=== PATIENT | male | born 1940 | race Caucasian/White ===

== ENCOUNTER 2019-12-09 16:32 | Observation (INO) ==
[2019-12-09] MEDS ORDERED: SODIUM CHLORIDE 0.9% 1,000 ML IV STA (17:16)
[2019-12-09 17:36] LABS: Basophils % 0.2 % (0.0-0.8); Eosinophils % 0.5 % (0.00-10.9); Hematocrit 42.5 VOL% (42.0-52.0); Hemoglobin 14.3 GM/DL (14.0-18.0); Immature Granulocytes % 0.6 %; Immature Granulocytes Absolute 0.05 #; Lymphocytes # 1.5 10*3/uL (1.4-4.0); Lymphocytes % 17.3 % (21.2-54.2); Mean Corpuscular HGB Conc 33.6 GM/DL (32-36); Mean Corpuscular Volume 101.4 FL (87-102); Mean Platelet Volume 9.2 FL (9.6-12.0); Neutrophils % 72.4 % (38.7-73.9); Platelet Count 196 T/CUMM (130-400); Red Blood Count 4.19 MC/CUMM (3.8-5.5); Red Cell Distribution Width 12.5 % (9.3-17.3); White Blood Count 8.6 T/CUMM (4-12)
[2019-12-09 17:52] LABS: Apearance,Urine CLEAR (Clear); Bilirubin,Urine Negative (Negative); Blood, Urine Negative (Negative); Glucose,Urine (UA) Negative (Negative); Hyaline Casts,Urine 18 /LPF (0-3); Ketones,Urine Negative (Negative); Mucus,Urine Occasional /LPF (Occasional); Nitrite,Urine Negative (Negative); Protein,Urine 30 MG/DL; RBC,Urine 3 /HPF (0-4); Squamous Epithelial Cell,Urine Occasional /HPF (0-10); Urine Color Amber (Yellow); Urine Specific Gravity 1.023 (1.001-1.035); WBC,Urine 2 /HPF (0-6)
[2019-12-09 18:05] LABS: Bilirubin,Total 0.6 MG/DL (0.2-1.0); Calcium 9.2 MG/DL (8.5-10.1); Osmolality,Calculated 270.2 MOS/KG (273-304); Total Protein 7.6 G/DL (6.4-8.3)
[2019-12-09] MEDS ORDERED: ONDANSETRON 4 MG/2 ML VIAL IV PRN (21:29)
[2019-12-09] MEDS ORDERED: ACETAMINOPHEN 325 MG TABLET PO PRN (21:29)
[2019-12-09] MEDS ORDERED: SODIUM PHOSPHATE ENEMA 133 ML BOTTLE RECTAL STA (21:34)
[2019-12-09] MEDS ORDERED: LACTULOSE 20 GM/30 ML UDCUP PO STA (21:34)
[2019-12-09] MEDS: DOCUSATE SODIUM 100 MG CAPSULE PO SCH (22:29)
[2019-12-10] MEDS ORDERED: PANTOPRAZOLE 40 MG TABLET PO SCH (09:00)
[2019-12-10] MEDS: DOCUSATE SODIUM 100 MG CAPSULE PO SCH (09:11)
[2019-12-10] MEDS ORDERED: BISACODYL 5 MG TABLET PO ONE (10:00)
[2019-12-10 15:35] VITALS: BP 126/83
== END 2019-12-10 18:22 | disposition home or self-care (01) ==
LOC: N.ED 16:32 → N.2E 16:32
PROVIDERS: ADMIT Family Medicine; ATTEND Family Medicine

== ENCOUNTER 2020-08-01 12:28 | Inpatient (IN) ==
[2020-08-01] MEDS ORDERED: SODIUM CHLORIDE 0.9% 1,000 ML IV STA ×2 (12:47→14:17)
[2020-08-01 13:25] LABS: Basophils % 0.6 % (0.0-0.8); Eosinophils # 0.1 10*3/uL (0.0-0.87); Eosinophils % 1.8 % (0.00-10.9); Hematocrit 41.5 VOL% (42.0-52.0); Immature Granulocytes % 1.4 %; Lymphocytes # 1.2 10*3/uL (1.4-4.0); Lymphocytes % 16.2 % (21.2-54.2); Mean Corpuscular HGB Conc 33.7 GM/DL (32-36); Mean Corpuscular Volume 96.3 FL (87-102); Mean Platelet Volume 9.2 FL (9.6-12.0); Monocytes % 10.3 % (1.7-12.7); Neutrophils % 69.7 % (38.7-73.9); Platelet Count 213 T/CUMM (130-400); Red Blood Count 4.31 MC/CUMM (3.8-5.5); Red Cell Distribution Width 12.3 % (9.3-17.3); White Blood Count 7.2 T/CUMM (4-12)
[2020-08-01 13:39] LABS: Bilirubin,Urine Negative (Negative); Blood, Urine Negative (Negative); Glucose,Urine (UA) Negative (Negative); Hyaline Casts,Urine 4 /LPF (0-3); Ketones,Urine Negative (Negative); Mucus,Urine Occasional /LPF (Occasional); Nitrite,Urine Negative (Negative); Protein,Urine 30 MG/DL; RBC,Urine 1 /HPF (0-4); Urine Appearance CLEAR (Clear); Urine Color Yellow (Yellow); Urine Specific Gravity 1.021 (1.001-1.035); WBC,Urine 2 /HPF (0-6)
[2020-08-01 13:40] LABS: Alanine Aminotransferase 28 U/L (16-61); Albumin 3.2 G/DL (3.4-5.0); Alkaline Phosphatase 71 U/L (45-117); Aspartate Amino Transferase 29 U/L (0-37); Blood Urea Nitrogen 9 MG/DL (7-18); Calcium 8.8 MG/DL (8.5-10.1); Estimated Glom Filtration Rate 63 ML/MIN; Glucose 133 MG/DL (74-106); Osmolality,Calculated 266.4 MOS/KG (273-304); Total Protein 7.8 G/DL (6.4-8.3)
[2020-08-01 14:41] LABS: Sedimentation Rate-Westergren 63 MM/HR (0-20)
[2020-08-01] MEDS: SODIUM CHLORIDE 0.45% 1,000 ML IV SCH (16:49)
[2020-08-01] MEDS: PIPERACILLIN/TAZOBACTAM 3,375 MG in SODIUM CHLORIDE 0.9% 100 ML IV SCH (16:49)
[2020-08-01] MEDS ORDERED: IBUPROFEN 400 MG TABLET PO PRN (20:26)
[2020-08-01] MEDS: ACETAMINOPHEN 325 MG TABLET PO PRN (20:38)
[2020-08-01] MEDS: ENOXAPARIN 40 MG/0.4 ML SYRINGE SUBCUT SCH (21:25)
[2020-08-01] MEDS: DOXYCYCLINE HYCLATE 100 MG CAPSULE PO SCH (21:25)
[2020-08-02] MEDS: SODIUM CHLORIDE 0.45% 1,000 ML IV SCH ×3 (01:43→16:37)
[2020-08-02] MEDS: PIPERACILLIN/TAZOBACTAM 3,375 MG in SODIUM CHLORIDE 0.9% 100 ML IV SCH ×3 (01:43→18:15)
[2020-08-02] MEDS: PANTOPRAZOLE 40 MG TABLET PO SCH (08:35)
[2020-08-02] MEDS: DOXYCYCLINE HYCLATE 100 MG CAPSULE PO SCH ×2 (08:35→20:49)
[2020-08-02] MEDS: MORPHINE 4 MG/1 ML VIAL IV PRN (08:54)
[2020-08-02] MEDS: ZALEPLON 5 MG CAPSULE PO SCH (20:49)
[2020-08-02] MEDS: ACETAMINOPHEN 325 MG TABLET PO PRN (20:49)
[2020-08-02] MEDS: PRAMIPEXOLE 0.25 MG TABLET PO SCH (20:49)
[2020-08-02] MEDS: GABAPENTIN 300 MG CAPSULE PO SCH (20:49)
[2020-08-02] MEDS: ENOXAPARIN 40 MG/0.4 ML SYRINGE SUBCUT SCH (20:50)
[2020-08-03] MEDS: PIPERACILLIN/TAZOBACTAM 3,375 MG in SODIUM CHLORIDE 0.9% 100 ML IV SCH ×3 (01:03→17:29)
[2020-08-03] MEDS: SODIUM CHLORIDE 0.45% 1,000 ML IV SCH ×2 (06:30→23:25)
[2020-08-03] MEDS ORDERED: ALBUTEROL 2.5 MG/3 ML NEB RESP TX PRN (07:34)
[2020-08-03] MEDS ORDERED: DEXTROMETHORPHAN ER 6 MG/ML 90 ML/BOTTLE PO PRN (07:34)
[2020-08-03] MEDS: PRAMIPEXOLE 0.25 MG TABLET PO SCH ×2 (12:20→21:10)
[2020-08-03] MEDS: DOXYCYCLINE HYCLATE 100 MG CAPSULE PO SCH ×2 (12:21→21:10)
[2020-08-03] MEDS: GABAPENTIN 300 MG CAPSULE PO SCH ×2 (12:21→21:10)
[2020-08-03] MEDS: PANTOPRAZOLE 40 MG TABLET PO SCH (12:21)
[2020-08-03] MEDS: SERTRALINE 25 MG TABLET PO SCH (12:21)
[2020-08-03] MEDS: ALBUTEROL/IPRATROPIUM 3 ML NEB RESP TX SCH ×3 (16:20→23:19)
[2020-08-03 17:59] LABS: Basophils % 0.5 % (0.0-0.8); Eosinophils % 0.6 % (0.00-10.9); Hematocrit 34.1 VOL% (42.0-52.0); Hemoglobin 11.1 GM/DL (14.0-18.0); Immature Granulocytes % 1.2 %; Immature Granulocytes Absolute 0.08 #; Lymphocytes # 1.2 10*3/uL (1.4-4.0); Lymphocytes % 18.8 % (21.2-54.2); Mean Corpuscular HGB Conc 32.6 GM/DL (32-36); Mean Platelet Volume 8.8 FL (9.6-12.0); Monocytes % 11.5 % (1.7-12.7); Neutrophils % 67.4 % (38.7-73.9); Platelet Count 214 T/CUMM (130-400); Red Blood Count 3.48 MC/CUMM (3.8-5.5); Red Cell Distribution Width 12.3 % (9.3-17.3); White Blood Count 6.4 T/CUMM (4-12)
[2020-08-03] MEDS: ENOXAPARIN 40 MG/0.4 ML SYRINGE SUBCUT SCH (21:10)
[2020-08-03] MEDS: ZALEPLON 5 MG CAPSULE PO SCH (21:10)
[2020-08-04] MEDS: PIPERACILLIN/TAZOBACTAM 3,375 MG in SODIUM CHLORIDE 0.9% 100 ML IV SCH ×3 (00:30→17:06)
[2020-08-04] MEDS: ALBUTEROL/IPRATROPIUM 3 ML NEB RESP TX SCH ×6 (03:45→23:30)
[2020-08-04] MEDS: SODIUM CHLORIDE 0.45% 1,000 ML IV SCH ×5 (04:30→21:39)
[2020-08-04 06:40] LABS: Albumin 2.3 G/DL (3.4-5.0); Bilirubin,Total 1.2 MG/DL (0.2-1.0); Calcium 8.5 MG/DL (8.5-10.1); Osmolality,Calculated 273.8 MOS/KG (273-304); Total Protein 6.2 G/DL (6.4-8.3)
[2020-08-04] MEDS ORDERED: HEPARIN/NACL 0.9% 2 UNITS/ML 500 ML IV ONE (10:02)
[2020-08-04] MEDS ORDERED: PHENYLEPHRINE DRIP 20 MG/250 ML PREMIX IV ONE (10:02)
[2020-08-04] MEDS ORDERED: SUGAMMADEX 200 MG/2 ML VIAL IV ONE (12:01)
[2020-08-04 12:33] LABS: Bilirubin,Urine Negative (Negative); Blood, Urine Negative (Negative); Glucose,Urine (UA) Negative (Negative); Hyaline Casts,Urine 1 /LPF (0-3); Ketones,Urine Negative (Negative); Nitrite,Urine Negative (Negative); Protein,Urine Negative; RBC,Urine 1 /HPF (0-4); Urine Appearance CLEAR (Clear); Urine Color Yellow (Yellow); Urine Specific Gravity 1.013 (1.001-1.035); Urine Urobilinogen < 2.0 EU/DL (0.2-1.0); WBC,Urine <1 /HPF (0-6)
[2020-08-04] MEDS ORDERED: ETOMIDATE 40 MG/20 ML VIAL IV ONE (12:34)
[2020-08-04] MEDS ORDERED: LIDOCAINE 2% 5 ML VIAL ONE (12:34)
[2020-08-04] MEDS ORDERED: fentaNYL 100 MCG/2 ML VIAL ONE (12:34)
[2020-08-04] MEDS ORDERED: SODIUM CHLORIDE 0.9% 1,000 ML IV ONE (12:35)
[2020-08-04] MEDS ORDERED: SEVOFLURANE 1 UNIT/15 MINUTE INH ONE (12:35)
[2020-08-04] MEDS ORDERED: ROCURONIUM 100 MG/10 ML VIAL IV ONE (12:35)
[2020-08-04] MEDS ORDERED: DEXAMETHASONE 4 MG/1 ML VIAL ONE (12:45)
[2020-08-04] MEDS ORDERED: ROPIVACAINE 0.5% 30 ML VIAL ONE (12:46)
[2020-08-04] MEDS ORDERED: LIDOCAINE 50 MG/5 ML SYRINGE ONE (12:46)
[2020-08-04] MEDS: PRAMIPEXOLE 0.25 MG TABLET PO SCH ×2 (13:29→20:39)
[2020-08-04] MEDS: GABAPENTIN 300 MG CAPSULE PO SCH ×2 (13:29→20:39)
[2020-08-04] MEDS: DOXYCYCLINE HYCLATE 100 MG CAPSULE PO SCH ×2 (13:34→20:39)
[2020-08-04] MEDS: SERTRALINE 25 MG TABLET PO SCH (13:34)
[2020-08-04] MEDS: PANTOPRAZOLE 40 MG TABLET PO SCH (13:34)
[2020-08-04] MEDS: ZALEPLON 5 MG CAPSULE PO SCH (20:39)
[2020-08-04] MEDS: ENOXAPARIN 40 MG/0.4 ML SYRINGE SUBCUT SCH (20:40)
[2020-08-04] MEDS: MORPHINE 4 MG/1 ML VIAL IV PRN (23:53)
[2020-08-05] MEDS: SODIUM CHLORIDE 0.45% 1,000 ML IV SCH ×4 (00:33→15:30)
[2020-08-05] MEDS: PIPERACILLIN/TAZOBACTAM 3,375 MG in SODIUM CHLORIDE 0.9% 100 ML IV SCH ×3 (01:16→18:06)
[2020-08-05] MEDS: ALBUTEROL/IPRATROPIUM 3 ML NEB RESP TX SCH ×6 (03:24→23:07)
[2020-08-05] MEDS: MORPHINE 4 MG/1 ML VIAL IV PRN (06:21)
[2020-08-05] MEDS: DOXYCYCLINE HYCLATE 100 MG CAPSULE PO SCH ×2 (08:41→20:23)
[2020-08-05] MEDS: PRAMIPEXOLE 0.25 MG TABLET PO SCH ×2 (08:41→20:22)
[2020-08-05] MEDS: PANTOPRAZOLE 40 MG TABLET PO SCH (08:42)
[2020-08-05] MEDS: GABAPENTIN 300 MG CAPSULE PO SCH ×2 (08:42→20:23)
[2020-08-05] MEDS: SERTRALINE 25 MG TABLET PO SCH (08:42)
[2020-08-05] MEDS: ACETAMINOPHEN 325 MG TABLET PO PRN ×2 (13:06→20:23)
[2020-08-05] MEDS: ENOXAPARIN 40 MG/0.4 ML SYRINGE SUBCUT SCH (20:22)
[2020-08-05] MEDS: ZALEPLON 5 MG CAPSULE PO SCH (21:21)
[2020-08-05] MEDS: ONDANSETRON 4 MG/2 ML VIAL IV PRN (21:21)
[2020-08-06] MEDS: SODIUM CHLORIDE 0.45% 1,000 ML IV SCH ×3 (01:43→18:21)
[2020-08-06] MEDS: PIPERACILLIN/TAZOBACTAM 3,375 MG in SODIUM CHLORIDE 0.9% 100 ML IV SCH ×3 (01:44→18:07)
[2020-08-06] MEDS: ALBUTEROL/IPRATROPIUM 3 ML NEB RESP TX SCH ×5 (03:14→18:41)
[2020-08-06] MEDS: ACETAMINOPHEN 325 MG TABLET PO PRN ×2 (09:11→20:51)
[2020-08-06] MEDS: GABAPENTIN 300 MG CAPSULE PO SCH ×2 (09:12→20:51)
[2020-08-06] MEDS: LEVOFLOXACIN 500 MG TABLET PO SCH (09:12)
[2020-08-06] MEDS: PRAMIPEXOLE 0.25 MG TABLET PO SCH ×2 (09:12→20:51)
[2020-08-06] MEDS: SERTRALINE 25 MG TABLET PO SCH (09:13)
[2020-08-06] MEDS: PANTOPRAZOLE 40 MG TABLET PO SCH (09:13)
[2020-08-06] MEDS: ZALEPLON 5 MG CAPSULE PO SCH (20:51)
[2020-08-06] MEDS: ENOXAPARIN 40 MG/0.4 ML SYRINGE SUBCUT SCH (20:51)
[2020-08-06] MEDS ORDERED: FUROSEMIDE 40 MG/4 ML VIAL IV ONE (22:54)
[2020-08-06] MEDS ORDERED: FUROSEMIDE 40 MG/4 ML VIAL ONE (22:56)
[2020-08-06 23:39] LABS: Bacteria,Urine Occasional /HPF (Few); Bilirubin,Urine Negative (Negative); Blood, Urine Small mg/dL (Negative); Glucose,Urine (UA) Negative (Negative); Ketones,Urine Negative (Negative); Mucus,Urine Occasional /LPF (Occasional); Nitrite,Urine Negative (Negative); Protein,Urine Negative; RBC,Urine 1 /HPF (0-4); Squamous Epithelial Cell,Urine Occasional /HPF (0-10); Urine Appearance CLEAR (Clear); Urine Color Yellow (Yellow); Urine Specific Gravity 1.014 (1.001-1.035); Urine Urobilinogen < 2.0 EU/DL (0.2-1.0)
[2020-08-07] MEDS: SODIUM CHLORIDE 0.45% 1,000 ML IV SCH ×2 (00:12→09:35)
[2020-08-07] MEDS: ALBUTEROL/IPRATROPIUM 3 ML NEB RESP TX SCH ×6 (00:30→20:13)
[2020-08-07] MEDS: PIPERACILLIN/TAZOBACTAM 3,375 MG in SODIUM CHLORIDE 0.9% 100 ML IV SCH ×3 (01:38→18:04)
[2020-08-07 04:23] LABS: Basophils % 0.5 % (0.0-0.8); Eosinophils # 0.1 10*3/uL (0.0-0.87); Eosinophils % 0.8 % (0.00-10.9); Hematocrit 32.5 VOL% (42.0-52.0); Hemoglobin 10.7 GM/DL (14.0-18.0); Immature Granulocytes % 2.1 %; Immature Granulocytes Absolute 0.19 #; Lymphocytes # 1.2 10*3/uL (1.4-4.0); Lymphocytes % 13.9 % (21.2-54.2); Mean Corpuscular HGB Conc 32.9 GM/DL (32-36); Mean Corpuscular Volume 97.3 FL (87-102); Mean Platelet Volume 8.9 FL (9.6-12.0); Monocytes % 10.4 % (1.7-12.7); Neutrophils % 72.3 % (38.7-73.9); Platelet Count 304 T/CUMM (130-400); Red Blood Count 3.34 MC/CUMM (3.8-5.5); Red Cell Distribution Width 12.8 % (9.3-17.3); White Blood Count 8.9 T/CUMM (4-12)
[2020-08-07 04:35] LABS: Calcium 7.9 MG/DL (8.5-10.1); Osmolality,Calculated 277.5 MOS/KG (273-304)
[2020-08-07] MEDS ORDERED: MAGNESIUM SULF RIDER 2 GM in PREMIX 1 EACH IV ONE (07:15)
[2020-08-07] MEDS ORDERED: POTASSIUM CHLORIDE 20 MEQ TABLET PO ONE ×2 (07:16→11:00)
[2020-08-07] MEDS ORDERED: FUROSEMIDE 40 MG/4 ML VIAL IV ONE (08:12)
[2020-08-07] MEDS: PRAMIPEXOLE 0.25 MG TABLET PO SCH ×2 (09:15→20:59)
[2020-08-07] MEDS: SERTRALINE 25 MG TABLET PO SCH (09:16)
[2020-08-07] MEDS: GABAPENTIN 300 MG CAPSULE PO SCH ×2 (09:16→20:59)
[2020-08-07] MEDS: PANTOPRAZOLE 40 MG TABLET PO SCH (09:16)
[2020-08-07] MEDS: LEVOFLOXACIN 500 MG TABLET PO SCH (09:22)
[2020-08-07] MEDS: ZALEPLON 5 MG CAPSULE PO SCH (20:59)
[2020-08-07] MEDS: ENOXAPARIN 40 MG/0.4 ML SYRINGE SUBCUT SCH (20:59)
[2020-08-08] MEDS: ALBUTEROL/IPRATROPIUM 3 ML NEB RESP TX SCH ×6 (00:03→20:06)
[2020-08-08] MEDS: PIPERACILLIN/TAZOBACTAM 3,375 MG in SODIUM CHLORIDE 0.9% 100 ML IV SCH ×3 (01:46→16:30)
[2020-08-08 05:19] LABS: Basophils # 0.1 10*3/uL (0.0-0.2); Basophils % 0.6 % (0.0-0.8); Eosinophils # 0.2 10*3/uL (0.0-0.87); Eosinophils % 1.8 % (0.00-10.9); Hematocrit 30.9 VOL% (42.0-52.0); Hemoglobin 10.5 GM/DL (14.0-18.0); Immature Granulocytes % 3.6 %; Lymphocytes # 1.2 10*3/uL (1.4-4.0); Lymphocytes % 14.5 % (21.2-54.2); Mean Corpuscular Volume 95.1 FL (87-102); Mean Platelet Volume 8.8 FL (9.6-12.0); Monocytes % 10.2 % (1.7-12.7); Neutrophils % 69.3 % (38.7-73.9); Platelet Count 285 T/CUMM (130-400); Red Blood Count 3.25 MC/CUMM (3.8-5.5); Red Cell Distribution Width 12.7 % (9.3-17.3); White Blood Count 8.3 T/CUMM (4-12)
[2020-08-08 05:41] LABS: Calcium 8.1 MG/DL (8.5-10.1); Osmolality,Calculated 276.8 MOS/KG (273-304)
[2020-08-08] MEDS ORDERED: FUROSEMIDE 20 MG TABLET PO SCH (09:00)
[2020-08-08] MEDS: LEVOFLOXACIN 500 MG TABLET PO SCH (09:08)
[2020-08-08] MEDS: PANTOPRAZOLE 40 MG TABLET PO SCH (09:08)
[2020-08-08] MEDS: SERTRALINE 25 MG TABLET PO SCH (09:08)
[2020-08-08] MEDS: GABAPENTIN 300 MG CAPSULE PO SCH ×2 (09:08→21:12)
[2020-08-08] MEDS: PRAMIPEXOLE 0.25 MG TABLET PO SCH ×2 (09:08→21:12)
[2020-08-08] MEDS: FUROSEMIDE 40 MG/4 ML VIAL IV SCH ×2 (13:34→16:31)
[2020-08-08] MEDS: ACETAMINOPHEN 325 MG TABLET PO PRN (21:12)
[2020-08-08] MEDS: ENOXAPARIN 40 MG/0.4 ML SYRINGE SUBCUT SCH (21:12)
[2020-08-09] MEDS: ALBUTEROL/IPRATROPIUM 3 ML NEB RESP TX SCH ×7 (00:41→23:47)
[2020-08-09] MEDS: PIPERACILLIN/TAZOBACTAM 3,375 MG in SODIUM CHLORIDE 0.9% 100 ML IV SCH (02:17)
[2020-08-09] MEDS: ZALEPLON 5 MG CAPSULE PO SCH ×2 (02:17→21:24)
[2020-08-09 06:14] LABS: Basophils # 0.1 10*3/uL (0.0-0.2); Basophils % 0.7 % (0.0-0.8); Eosinophils # 0.3 10*3/uL (0.0-0.87); Eosinophils % 3.3 % (0.00-10.9); Hematocrit 31.6 VOL% (42.0-52.0); Hemoglobin 10.5 GM/DL (14.0-18.0); Immature Granulocytes % 6.5 %; Immature Granulocytes Absolute 0.49 #; Lymphocytes # 1.3 10*3/uL (1.4-4.0); Lymphocytes % 17.1 % (21.2-54.2); Mean Corpuscular HGB Conc 33.2 GM/DL (32-36); Mean Corpuscular Volume 95.5 FL (87-102); Mean Platelet Volume 9.1 FL (9.6-12.0); Neutrophils % 59.4 % (38.7-73.9); Platelet Count 296 T/CUMM (130-400); Red Blood Count 3.31 MC/CUMM (3.8-5.5); Red Cell Distribution Width 12.5 % (9.3-17.3); White Blood Count 7.6 T/CUMM (4-12)
[2020-08-09 06:38] LABS: Albumin 1.9 G/DL (3.4-5.0); Bilirubin,Total 0.8 MG/DL (0.2-1.0); Total Protein 6.1 G/DL (6.4-8.3)
[2020-08-09 06:50] LABS: Eosinophils 2 % (0-10); Lymphocytes 13 % (20-55); Platelet Estimate Adequate; Segmented Neutrophils 69 % (50-85); Total Cells Counted 100
[2020-08-09 06:51] LABS: Hypochromasia 1+; Microcytosis 1+
[2020-08-09] MEDS: FUROSEMIDE 40 MG/4 ML VIAL IV SCH ×2 (09:25→16:53)
[2020-08-09] MEDS: PRAMIPEXOLE 0.25 MG TABLET PO SCH ×2 (09:25→21:23)
[2020-08-09] MEDS: GABAPENTIN 300 MG CAPSULE PO SCH ×2 (09:25→21:23)
[2020-08-09] MEDS: PANTOPRAZOLE 40 MG TABLET PO SCH (09:25)
[2020-08-09] MEDS: LEVOFLOXACIN 500 MG TABLET PO SCH (09:25)
[2020-08-09] MEDS: SERTRALINE 25 MG TABLET PO SCH (09:40)
[2020-08-09] MEDS: ENOXAPARIN 40 MG/0.4 ML SYRINGE SUBCUT SCH (21:23)
[2020-08-10] MEDS: ALBUTEROL/IPRATROPIUM 3 ML NEB RESP TX SCH ×6 (00:20→19:20)
[2020-08-10 06:00] LABS: Basophils # 0.1 10*3/uL (0.0-0.2); Basophils % 0.9 % (0.0-0.8); Eosinophils # 0.3 10*3/uL (0.0-0.87); Eosinophils % 2.8 % (0.00-10.9); Hematocrit 35.2 VOL% (42.0-52.0); Hemoglobin 11.8 GM/DL (14.0-18.0); Immature Granulocytes % 7.1 %; Immature Granulocytes Absolute 0.63 #; Lymphocytes # 1.1 10*3/uL (1.4-4.0); Lymphocytes % 11.8 % (21.2-54.2); Mean Corpuscular HGB Conc 33.5 GM/DL (32-36); Mean Corpuscular Volume 95.1 FL (87-102); Monocytes % 12.8 % (1.7-12.7); Neutrophils % 64.6 % (38.7-73.9); Platelet Count 316 T/CUMM (130-400); Red Cell Distribution Width 12.4 % (9.3-17.3); White Blood Count 8.9 T/CUMM (4-12)
[2020-08-10 06:22] LABS: Eosinophils 4 % (0-10); Hypochromasia 1+; Lymphocytes 18 % (20-55); Microcytosis 1+; Ovalocytes Slight; Platelet Estimate Adequate; Segmented Neutrophils 61 % (50-85); Total Cells Counted 100
[2020-08-10] MEDS: ONDANSETRON 4 MG/2 ML VIAL IV PRN (06:35)
[2020-08-10] MEDS: PANTOPRAZOLE 40 MG TABLET PO SCH (08:59)
[2020-08-10] MEDS: PRAMIPEXOLE 0.25 MG TABLET PO SCH ×2 (08:59→20:26)
[2020-08-10] MEDS: GABAPENTIN 300 MG CAPSULE PO SCH ×2 (08:59→20:25)
[2020-08-10] MEDS: SERTRALINE 25 MG TABLET PO SCH (08:59)
[2020-08-10] MEDS: FUROSEMIDE 40 MG/4 ML VIAL IV SCH ×2 (09:00→17:00)
[2020-08-10] MEDS: SULFAMETHOX/TRIMETHOPRIM 800-160 MG TABLET PO SCH ×2 (11:57→20:26)
[2020-08-10] MEDS ORDERED: TUBERCULIN SKIN TEST 0.1 ML SYRINGE INTRADERM ONE (15:00)
[2020-08-10] MEDS: ENOXAPARIN 40 MG/0.4 ML SYRINGE SUBCUT SCH (20:25)
[2020-08-11] MEDS: ALBUTEROL/IPRATROPIUM 3 ML NEB RESP TX SCH ×6 (03:26→23:10)
[2020-08-11] MEDS: FUROSEMIDE 40 MG/4 ML VIAL IV SCH ×2 (09:02→16:38)
[2020-08-11] MEDS: GABAPENTIN 300 MG CAPSULE PO SCH ×2 (09:03→22:06)
[2020-08-11] MEDS: PRAMIPEXOLE 0.25 MG TABLET PO SCH ×2 (09:03→22:06)
[2020-08-11] MEDS: SULFAMETHOX/TRIMETHOPRIM 800-160 MG TABLET PO SCH ×2 (09:03→22:06)
[2020-08-11] MEDS: PANTOPRAZOLE 40 MG TABLET PO SCH (09:03)
[2020-08-11] MEDS: SERTRALINE 25 MG TABLET PO SCH (09:03)
[2020-08-11 11:21] LABS: Bilirubin,Total 1.28 MG/DL (0.2-1.0); Calcium 9.1 MG/DL (8.5-10.1)
[2020-08-11 11:22] LABS: Albumin 2.4 G/DL (3.4-5.0); Osmolality,Calculated 269.8 MOS/KG (273-304); Total Protein 7.6 G/DL (6.4-8.3)
[2020-08-11] MEDS: POTASSIUM CHLORIDE 20 MEQ TABLET PO PRN ×2 (14:14→16:42)
[2020-08-11] MEDS: ONDANSETRON 4 MG/2 ML VIAL IV PRN (14:34)
[2020-08-11] MEDS: ACETAMINOPHEN 325 MG TABLET PO PRN (16:39)
[2020-08-11] MEDS ORDERED: SODIUM CHLORIDE 0.9% 500 ML IV ONE ×2 (17:46→18:16)
[2020-08-11] MEDS ORDERED: ACETAMINOPHEN 650 MG SUPP RECTAL PRN (17:53)
[2020-08-11 17:58] LABS: Basophils # 0.1 10*3/uL (0.0-0.2); Basophils % 0.9 % (0.0-0.8); Eosinophils % 0.3 % (0.00-10.9); Hematocrit 40.3 VOL% (42.0-52.0); Hemoglobin 13.4 GM/DL (14.0-18.0); Immature Granulocytes % 7.4 %; Immature Granulocytes Absolute 1.08 #; Lymphocytes # 1.1 10*3/uL (1.4-4.0); Lymphocytes % 7.2 % (21.2-54.2); Mean Corpuscular HGB Conc 33.3 GM/DL (32-36); Mean Corpuscular Volume 95.3 FL (87-102); Mean Platelet Volume 8.9 FL (9.6-12.0); Monocytes % 9.7 % (1.7-12.7); Neutrophils % 74.5 % (38.7-73.9); Platelet Count 438 T/CUMM (130-400); Red Blood Count 4.23 MC/CUMM (3.8-5.5); Red Cell Distribution Width 12.5 % (9.3-17.3); White Blood Count 14.7 T/CUMM (4-12)
[2020-08-11] MEDS: PIPERACILLIN/TAZOBACTAM 3,375 MG in SODIUM CHLORIDE 0.9% 100 ML IV SCH (18:03)
[2020-08-11 18:30] LABS: Anisocytosis 1+; Band Neutrophils 1 % (0-10); Lymphocytes 10 % (20-55); Segmented Neutrophils 82 % (50-85); Total Cells Counted 100
[2020-08-11 18:31] LABS: Burr Cells 1+; Hypochromasia 1+; Platelet Estimate Adequate; Polychromasia 1+
[2020-08-11] MEDS: SODIUM CHLORIDE 0.9% 1,000 ML IV SCH (19:08)
[2020-08-11] MEDS: CYPROHEPTADINE 4 MG TABLET PO SCH (22:08)
[2020-08-11] MEDS: VANCOMYCIN INJ 1,000 MG in SODIUM CHLORIDE 0.9% 250 ML IV SCH (22:51)
[2020-08-11] MEDS: ENOXAPARIN 40 MG/0.4 ML SYRINGE SUBCUT SCH (22:51)
[2020-08-12] MEDS: ALBUTEROL/IPRATROPIUM 3 ML NEB RESP TX SCH ×6 (03:51→23:35)
[2020-08-12] MEDS: PIPERACILLIN/TAZOBACTAM 3,375 MG in SODIUM CHLORIDE 0.9% 100 ML IV SCH ×3 (03:55→18:52)
[2020-08-12 05:11] LABS: Basophils # 0.1 10*3/uL (0.0-0.2); Basophils % 0.4 % (0.0-0.8); Eosinophils # 0.1 10*3/uL (0.0-0.87); Eosinophils % 0.5 % (0.00-10.9); Hematocrit 31.8 VOL% (42.0-52.0); Hemoglobin 10.7 GM/DL (14.0-18.0); Immature Granulocytes % 4.7 %; Immature Granulocytes Absolute 0.63 #; Lymphocytes # 1.3 10*3/uL (1.4-4.0); Lymphocytes % 9.5 % (21.2-54.2); Mean Corpuscular HGB Conc 33.6 GM/DL (32-36); Mean Corpuscular Volume 95.5 FL (87-102); Mean Platelet Volume 8.7 FL (9.6-12.0); Monocytes % 9.7 % (1.7-12.7); Neutrophils % 75.2 % (38.7-73.9); Platelet Count 254 T/CUMM (130-400); Red Blood Count 3.33 MC/CUMM (3.8-5.5); Red Cell Distribution Width 12.5 % (9.3-17.3); White Blood Count 13.4 T/CUMM (4-12)
[2020-08-12 05:34] LABS: Bilirubin,Total 0.6 MG/DL (0.2-1.0); Calcium 8.4 MG/DL (8.5-10.1); Total Protein 6.2 G/DL (6.4-8.3)
[2020-08-12 05:40] LABS: Band Neutrophils 6 % (0-10); Eosinophils 1 % (0-10); Lymphocytes 8 % (20-55); Metamyelocytes 3 %; Segmented Neutrophils 73 % (50-85); Total Cells Counted 100
[2020-08-12 05:41] LABS: Anisocytosis 1+; Macrocytosis Slight; Platelet Estimate Normal
[2020-08-12] MEDS: SODIUM CHLORIDE 0.9% 1,000 ML IV SCH ×2 (06:02→16:02)
[2020-08-12] MEDS: CYPROHEPTADINE 4 MG TABLET PO SCH ×2 (08:43→21:48)
[2020-08-12] MEDS: MULTIVITAMIN (CENTRUM) TABLET PO SCH (08:43)
[2020-08-12] MEDS: SULFAMETHOX/TRIMETHOPRIM 800-160 MG TABLET PO SCH ×2 (08:43→21:48)
[2020-08-12] MEDS: PRAMIPEXOLE 0.25 MG TABLET PO SCH ×2 (08:43→21:48)
[2020-08-12] MEDS: GABAPENTIN 300 MG CAPSULE PO SCH ×2 (08:43→21:48)
[2020-08-12] MEDS: PANTOPRAZOLE 40 MG TABLET PO SCH (08:44)
[2020-08-12] MEDS: SERTRALINE 25 MG TABLET PO SCH (08:44)
[2020-08-12] MEDS: FUROSEMIDE 40 MG/4 ML VIAL IV SCH (08:44)
[2020-08-12] MEDS: methylPREDNISolone SOD SUC 40 MG/1 ML VIAL IV SCH ×2 (10:17→18:50)
[2020-08-12] MEDS: VANCOMYCIN INJ 1,000 MG in SODIUM CHLORIDE 0.9% 250 ML IV SCH (14:56)
[2020-08-12] MEDS: ENOXAPARIN 40 MG/0.4 ML SYRINGE SUBCUT SCH (21:48)
[2020-08-13] MEDS: SODIUM CHLORIDE 0.9% 1,000 ML IV SCH ×3 (02:18→14:02)
[2020-08-13] MEDS: PIPERACILLIN/TAZOBACTAM 3,375 MG in SODIUM CHLORIDE 0.9% 100 ML IV SCH ×3 (02:18→17:49)
[2020-08-13] MEDS: methylPREDNISolone SOD SUC 40 MG/1 ML VIAL IV SCH ×3 (02:18→17:49)
[2020-08-13] MEDS: ALBUTEROL/IPRATROPIUM 3 ML NEB RESP TX SCH ×5 (03:42→19:35)
[2020-08-13 04:39] LABS: Basophils % 0.3 % (0.0-0.8); Hematocrit 29.3 VOL% (42.0-52.0); Hemoglobin 9.7 GM/DL (14.0-18.0); Immature Granulocytes % 6.6 %; Immature Granulocytes Absolute 0.71 #; Lymphocytes # 0.7 10*3/uL (1.4-4.0); Lymphocytes % 6.5 % (21.2-54.2); Mean Corpuscular HGB Conc 33.1 GM/DL (32-36); Mean Platelet Volume 8.9 FL (9.6-12.0); Monocytes % 2.5 % (1.7-12.7); Neutrophils % 84.1 % (38.7-73.9); Platelet Count 230 T/CUMM (130-400); Red Blood Count 3.02 MC/CUMM (3.8-5.5); Red Cell Distribution Width 12.3 % (9.3-17.3); White Blood Count 10.8 T/CUMM (4-12)
[2020-08-13 04:57] LABS: Hypochromasia 1+; Lymphocytes 4 % (20-55); Microcytosis Slight; Platelet Estimate Adequate; Segmented Neutrophils 93 % (50-85); Total Cells Counted 100
[2020-08-13 05:19] LABS: Calcium 7.9 MG/DL (8.5-10.1); Osmolality,Calculated 278.2 MOS/KG (273-304)
[2020-08-13] MEDS: CYPROHEPTADINE 4 MG TABLET PO SCH ×2 (09:39→21:19)
[2020-08-13] MEDS: PRAMIPEXOLE 0.25 MG TABLET PO SCH ×2 (09:39→21:20)
[2020-08-13] MEDS: VANCOMYCIN INJ 1,000 MG in SODIUM CHLORIDE 0.9% 250 ML IV SCH (09:39)
[2020-08-13] MEDS: SERTRALINE 25 MG TABLET PO SCH (09:39)
[2020-08-13] MEDS: MULTIVITAMIN (CENTRUM) TABLET PO SCH (09:39)
[2020-08-13] MEDS: PANTOPRAZOLE 40 MG TABLET PO SCH (09:39)
[2020-08-13] MEDS: SULFAMETHOX/TRIMETHOPRIM 800-160 MG TABLET PO SCH ×2 (09:39→21:19)
[2020-08-13] MEDS: GABAPENTIN 300 MG CAPSULE PO SCH ×2 (09:39→21:20)
[2020-08-13] MEDS: ENOXAPARIN 40 MG/0.4 ML SYRINGE SUBCUT SCH (21:20)
[2020-08-14] MEDS: ALBUTEROL/IPRATROPIUM 3 ML NEB RESP TX SCH ×7 (00:34→23:05)
[2020-08-14] MEDS: PIPERACILLIN/TAZOBACTAM 3,375 MG in SODIUM CHLORIDE 0.9% 100 ML IV SCH ×3 (02:30→17:57)
[2020-08-14] MEDS: methylPREDNISolone SOD SUC 40 MG/1 ML VIAL IV SCH ×3 (02:32→21:28)
[2020-08-14] MEDS: VANCOMYCIN INJ 1,000 MG in SODIUM CHLORIDE 0.9% 250 ML IV SCH ×2 (02:34→21:29)
[2020-08-14] MEDS: SODIUM CHLORIDE 0.9% 1,000 ML IV SCH ×3 (08:00→21:18)
[2020-08-14 09:29] LABS: Basophils # 0.1 10*3/uL (0.0-0.2); Basophils % 0.3 % (0.0-0.8); Eosinophils % 0.1 % (0.00-10.9); Hematocrit 31.3 VOL% (42.0-52.0); Hemoglobin 10.4 GM/DL (14.0-18.0); Immature Granulocytes % 5.6 %; Lymphocytes # 0.7 10*3/uL (1.4-4.0); Lymphocytes % 4.6 % (21.2-54.2); Mean Corpuscular HGB Conc 33.2 GM/DL (32-36); Mean Corpuscular Volume 96.6 FL (87-102); Mean Platelet Volume 9.1 FL (9.6-12.0); Monocytes % 4.7 % (1.7-12.7); Neutrophils % 84.7 % (38.7-73.9); Platelet Count 268 T/CUMM (130-400); Red Blood Count 3.24 MC/CUMM (3.8-5.5); Red Cell Distribution Width 12.4 % (9.3-17.3); White Blood Count 15.9 T/CUMM (4-12)
[2020-08-14 09:46] LABS: ABG HCO3 23.4 MMOL/L (20-26); ABG Oxygen Saturation 90.1 % (95-100); ABG PCO2 37.9 MM HG (35-48); ABG TCO2 21.3 MMOL/L (23-27)
[2020-08-14 09:48] LABS: Anisocytosis 1+; Band Neutrophils 6 % (0-10); Lymphocytes 5 % (20-55); Metamyelocytes 2 %; Platelet Estimate Normal; Polychromasia Slight; Segmented Neutrophils 82 % (50-85); Total Cells Counted 100
[2020-08-14 10:00] LABS: Albumin 2.2 G/DL (3.4-5.0); Bilirubin,Total 1.3 MG/DL (0.2-1.0); Calcium 8.5 MG/DL (8.5-10.1); Osmolality,Calculated 284.8 MOS/KG (273-304); Total Protein 6.4 G/DL (6.4-8.3)
[2020-08-14] MEDS: PRAMIPEXOLE 0.25 MG TABLET PO SCH ×2 (10:08→20:49)
[2020-08-14] MEDS: CYPROHEPTADINE 4 MG TABLET PO SCH ×2 (10:08→20:49)
[2020-08-14] MEDS: GABAPENTIN 300 MG CAPSULE PO SCH ×2 (10:08→20:49)
[2020-08-14] MEDS: MULTIVITAMIN (CENTRUM) TABLET PO SCH (10:08)
[2020-08-14] MEDS: SULFAMETHOX/TRIMETHOPRIM 800-160 MG TABLET PO SCH ×2 (10:08→20:49)
[2020-08-14] MEDS: SERTRALINE 25 MG TABLET PO SCH (10:12)
[2020-08-14] MEDS: PANTOPRAZOLE 40 MG TABLET PO SCH (10:12)
[2020-08-14] MEDS: ENOXAPARIN 40 MG/0.4 ML SYRINGE SUBCUT SCH (20:48)
[2020-08-15] MEDS: PIPERACILLIN/TAZOBACTAM 3,375 MG in SODIUM CHLORIDE 0.9% 100 ML IV SCH ×3 (02:43→17:54)
[2020-08-15] MEDS: ALBUTEROL/IPRATROPIUM 3 ML NEB RESP TX SCH ×6 (03:00→22:57)
[2020-08-15] MEDS: SODIUM CHLORIDE 0.9% 1,000 ML IV SCH ×2 (07:04→21:06)
[2020-08-15] MEDS: SULFAMETHOX/TRIMETHOPRIM 800-160 MG TABLET PO SCH ×2 (09:36→21:08)
[2020-08-15] MEDS: GABAPENTIN 300 MG CAPSULE PO SCH ×2 (09:37→21:08)
[2020-08-15] MEDS: PANTOPRAZOLE 40 MG TABLET PO SCH (09:37)
[2020-08-15] MEDS: SERTRALINE 25 MG TABLET PO SCH (09:37)
[2020-08-15] MEDS: MULTIVITAMIN (CENTRUM) TABLET PO SCH (09:37)
[2020-08-15] MEDS: PRAMIPEXOLE 0.25 MG TABLET PO SCH ×2 (09:37→21:08)
[2020-08-15] MEDS: methylPREDNISolone SOD SUC 40 MG/1 ML VIAL IV SCH ×2 (09:37→21:08)
[2020-08-15] MEDS: CYPROHEPTADINE 4 MG TABLET PO SCH ×2 (09:37→21:08)
[2020-08-15 11:51] LABS: Allen Test Positive; Pt O2 Delivery Device BIPAP
[2020-08-15 11:52] LABS: ABG Base Excess 1.2 MMOL/L (-2.5-2.5); ABG HCO3 25.4 MMOL/L (20-26); ABG PCO2 38.7 MM HG (35-48); ABG PH 7.426 (7.35-7.45); ABG PO2 60.5 MM HG (80-95)
[2020-08-15] MEDS: VANCOMYCIN INJ 1,250 MG in SODIUM CHLORIDE 0.9% 250 ML IV SCH (15:04)
[2020-08-15] MEDS: ENOXAPARIN 40 MG/0.4 ML SYRINGE SUBCUT SCH (21:08)
[2020-08-16] MEDS: SODIUM CHLORIDE 0.9% 1,000 ML IV SCH ×2 (00:54→20:10)
[2020-08-16] MEDS: PIPERACILLIN/TAZOBACTAM 3,375 MG in SODIUM CHLORIDE 0.9% 100 ML IV SCH ×3 (01:00→17:21)
[2020-08-16] MEDS: ALBUTEROL/IPRATROPIUM 3 ML NEB RESP TX SCH ×6 (03:10→23:28)
[2020-08-16 04:29] LABS: ABG Base Excess 2.5 MMOL/L (-2.5-2.5); ABG HCO3 26.6 MMOL/L (20-26); ABG Oxygen Saturation 97.5 % (95-100); ABG PCO2 41.2 MM HG (35-48); ABG PH 7.426 (7.35-7.45); ABG PO2 90.1 MM HG (80-95); ABG TCO2 24.4 MMOL/L (23-27); Allen Test Positive; Pt O2 Delivery Device BIPAP
[2020-08-16 05:15] LABS: Basophils # 0.1 10*3/uL (0.0-0.2); Basophils % 0.7 % (0.0-0.8); Hematocrit 31.3 VOL% (42.0-52.0); Hemoglobin 10.2 GM/DL (14.0-18.0); Immature Granulocytes % 7.8 %; Immature Granulocytes Absolute 0.94 #; Lymphocytes # 1.1 10*3/uL (1.4-4.0); Lymphocytes % 9.1 % (21.2-54.2); Mean Corpuscular HGB Conc 32.6 GM/DL (32-36); Mean Corpuscular Volume 95.7 FL (87-102); Mean Platelet Volume 9.2 FL (9.6-12.0); Monocytes % 5.9 % (1.7-12.7); Neutrophils % 76.5 % (38.7-73.9); Platelet Count 283 T/CUMM (130-400); Red Blood Count 3.27 MC/CUMM (3.8-5.5); Red Cell Distribution Width 12.6 % (9.3-17.3)
[2020-08-16 05:30] LABS: Albumin 2.2 G/DL (3.4-5.0); Bilirubin,Total 1.2 MG/DL (0.2-1.0); Calcium 8.9 MG/DL (8.5-10.1); Osmolality,Calculated 281.1 MOS/KG (273-304); Total Protein 6.3 G/DL (6.4-8.3)
[2020-08-16 05:37] LABS: Lymphocytes 6 % (20-55); Platelet Estimate Adequate; Segmented Neutrophils 89 % (50-85); Total Cells Counted 100
[2020-08-16 05:38] LABS: Hypochromasia 1+; Microcytosis Slight
[2020-08-16] MEDS: MULTIVITAMIN (CENTRUM) TABLET PO SCH (09:16)
[2020-08-16] MEDS: PRAMIPEXOLE 0.25 MG TABLET PO SCH ×2 (09:16→20:48)
[2020-08-16] MEDS: SERTRALINE 25 MG TABLET PO SCH (09:16)
[2020-08-16] MEDS: PANTOPRAZOLE 40 MG TABLET PO SCH (09:17)
[2020-08-16] MEDS: GABAPENTIN 300 MG CAPSULE PO SCH ×2 (09:17→20:48)
[2020-08-16] MEDS: SULFAMETHOX/TRIMETHOPRIM 800-160 MG TABLET PO SCH ×2 (09:17→20:48)
[2020-08-16] MEDS: CYPROHEPTADINE 4 MG TABLET PO SCH ×2 (09:17→20:47)
[2020-08-16] MEDS: VANCOMYCIN INJ 1,250 MG in SODIUM CHLORIDE 0.9% 250 ML IV SCH (09:17)
[2020-08-16] MEDS: methylPREDNISolone SOD SUC 40 MG/1 ML VIAL IV SCH ×2 (09:20→21:22)
[2020-08-16] MEDS: INSULIN LISPRO 100 UNIT/ML SUBCUT SCH ×3 (12:33→20:48)
[2020-08-16] MEDS: ENOXAPARIN 40 MG/0.4 ML SYRINGE SUBCUT SCH (20:48)
[2020-08-17] MEDS: PIPERACILLIN/TAZOBACTAM 3,375 MG in SODIUM CHLORIDE 0.9% 100 ML IV SCH ×3 (02:19→17:10)
[2020-08-17] MEDS: ALBUTEROL/IPRATROPIUM 3 ML NEB RESP TX SCH ×6 (03:18→23:10)
[2020-08-17] MEDS: VANCOMYCIN INJ 1,250 MG in SODIUM CHLORIDE 0.9% 250 ML IV SCH ×2 (04:17→20:51)
[2020-08-17 08:14] LABS: Basophils # 0.1 10*3/uL (0.0-0.2); Basophils % 0.6 % (0.0-0.8); Eosinophils % 0.1 % (0.00-10.9); Hematocrit 32.5 VOL% (42.0-52.0); Hemoglobin 10.7 GM/DL (14.0-18.0); Immature Granulocytes % 8.1 %; Immature Granulocytes Absolute 1.14 #; Lymphocytes # 1.5 10*3/uL (1.4-4.0); Lymphocytes % 10.5 % (21.2-54.2); Mean Corpuscular HGB Conc 32.9 GM/DL (32-36); Mean Corpuscular Volume 96.4 FL (87-102); Mean Platelet Volume 9.3 FL (9.6-12.0); Monocytes % 4.6 % (1.7-12.7); Neutrophils % 76.1 % (38.7-73.9); Platelet Count 299 T/CUMM (130-400); Red Blood Count 3.37 MC/CUMM (3.8-5.5); Red Cell Distribution Width 12.7 % (9.3-17.3); White Blood Count 14.1 T/CUMM (4-12)
[2020-08-17] MEDS: INSULIN LISPRO 100 UNIT/ML SUBCUT SCH ×5 (08:29→20:49)
[2020-08-17 08:34] LABS: Calcium 8.8 MG/DL (8.5-10.1); Osmolality,Calculated 281.1 MOS/KG (273-304)
[2020-08-17 08:48] LABS: Band Neutrophils 4 % (0-10); Lymphocytes 16 % (20-55); Metamyelocytes 2 %; Nucleated Red Blood Cells 1 (0-5); Platelet Estimate Normal; Segmented Neutrophils 73 % (50-85); Total Cells Counted 100
[2020-08-17 08:49] LABS: Anisocytosis 1+; Polychromasia Slight
[2020-08-17] MEDS: SODIUM CHLORIDE 0.9% 1,000 ML IV SCH ×3 (08:53→22:33)
[2020-08-17] MEDS: SULFAMETHOX/TRIMETHOPRIM 800-160 MG TABLET PO SCH ×2 (09:00→20:50)
[2020-08-17] MEDS: PRAMIPEXOLE 0.25 MG TABLET PO SCH ×2 (09:00→20:50)
[2020-08-17] MEDS: MULTIVITAMIN (CENTRUM) TABLET PO SCH (09:00)
[2020-08-17] MEDS: GABAPENTIN 300 MG CAPSULE PO SCH ×2 (09:00→20:50)
[2020-08-17] MEDS: PANTOPRAZOLE 40 MG TABLET PO SCH (09:00)
[2020-08-17] MEDS: SERTRALINE 25 MG TABLET PO SCH (09:00)
[2020-08-17] MEDS: CYPROHEPTADINE 4 MG TABLET PO SCH ×2 (09:00→20:50)
[2020-08-17] MEDS: methylPREDNISolone SOD SUC 40 MG/1 ML VIAL IV SCH ×2 (09:08→21:02)
[2020-08-17] MEDS: INSULIN GLARGINE 100 UNIT/ML SUBCUT SCH (20:49)
[2020-08-18] MEDS: PIPERACILLIN/TAZOBACTAM 3,375 MG in SODIUM CHLORIDE 0.9% 100 ML IV SCH ×3 (01:45→17:12)
[2020-08-18] MEDS: ALBUTEROL/IPRATROPIUM 3 ML NEB RESP TX SCH ×6 (03:14→23:33)
[2020-08-18] MEDS ORDERED: MEPERIDINE 50 MG/1 ML VIAL IM ONE (07:30)
[2020-08-18] MEDS ORDERED: PROMETHAZINE 25 MG/1 ML VIAL IM ONE (07:30)
[2020-08-18] MEDS ORDERED: LIDOCAINE 2% 20 ML VIAL RESP TX ONE (08:00)
[2020-08-18] MEDS ORDERED: LIDOCAINE 1% 20 ML VIAL MISC INJ ONE (08:00)
[2020-08-18] MEDS ORDERED: MIDAZOLAM 2 MG/2 ML VIAL IV ONE (08:00)
[2020-08-18] MEDS ORDERED: LIDOCAINE 2% VISCOUS 100 ML BOTTLE SWISH/SPIT ONE (08:00)
[2020-08-18] MEDS: INSULIN LISPRO 100 UNIT/ML SUBCUT SCH ×4 (09:01→20:21)
[2020-08-18] MEDS: methylPREDNISolone SOD SUC 40 MG/1 ML VIAL IV SCH ×2 (09:52→21:28)
[2020-08-18] MEDS ORDERED: MIDAZOLAM 2 MG/2 ML VIAL ONE (09:55)
[2020-08-18] MEDS: PRAMIPEXOLE 0.25 MG TABLET PO SCH ×2 (10:37→20:14)
[2020-08-18] MEDS: GABAPENTIN 300 MG CAPSULE PO SCH ×2 (10:37→20:14)
[2020-08-18] MEDS: CYPROHEPTADINE 4 MG TABLET PO SCH ×2 (10:37→20:14)
[2020-08-18] MEDS: SERTRALINE 25 MG TABLET PO SCH (10:38)
[2020-08-18] MEDS: PANTOPRAZOLE 40 MG TABLET PO SCH (10:38)
[2020-08-18] MEDS: MULTIVITAMIN (CENTRUM) TABLET PO SCH (10:38)
[2020-08-18] MEDS: SODIUM CHLORIDE 0.9% 1,000 ML IV SCH (11:48)
[2020-08-18] MEDS: VANCOMYCIN INJ 1,250 MG in SODIUM CHLORIDE 0.9% 250 ML IV SCH (15:09)
[2020-08-18] MEDS: INSULIN GLARGINE 100 UNIT/ML SUBCUT SCH (20:21)
[2020-08-19] MEDS: SODIUM CHLORIDE 0.9% 1,000 ML IV SCH ×2 (01:20→14:31)
[2020-08-19] MEDS: PIPERACILLIN/TAZOBACTAM 3,375 MG in SODIUM CHLORIDE 0.9% 100 ML IV SCH (02:26)
[2020-08-19] MEDS: ALBUTEROL/IPRATROPIUM 3 ML NEB RESP TX SCH ×5 (03:05→19:40)
[2020-08-19 07:25] LABS: Basophils # 0.1 10*3/uL (0.0-0.2); Basophils % 0.4 % (0.0-0.8); Hematocrit 33.8 VOL% (42.0-52.0); Hemoglobin 11.1 GM/DL (14.0-18.0); Immature Granulocytes % 4.5 %; Immature Granulocytes Absolute 0.93 #; Lymphocytes # 1.9 10*3/uL (1.4-4.0); Lymphocytes % 9.4 % (21.2-54.2); Mean Corpuscular HGB Conc 32.8 GM/DL (32-36); Mean Platelet Volume 9.1 FL (9.6-12.0); Monocytes % 4.2 % (1.7-12.7); Neutrophils % 81.5 % (38.7-73.9); Platelet Count 292 T/CUMM (130-400); Red Blood Count 3.52 MC/CUMM (3.8-5.5); Red Cell Distribution Width 13.2 % (9.3-17.3); White Blood Count 20.5 T/CUMM (4-12)
[2020-08-19] MEDS: INSULIN LISPRO 100 UNIT/ML SUBCUT SCH ×4 (07:35→21:04)
[2020-08-19 07:51] LABS: Albumin 2.2 G/DL (3.4-5.0); Bilirubin,Total 0.6 MG/DL (0.2-1.0); Calcium 8.7 MG/DL (8.5-10.1); Osmolality,Calculated 270.4 MOS/KG (273-304); Total Protein 6.5 G/DL (6.4-8.3)
[2020-08-19] MEDS: MULTIVITAMIN (CENTRUM) TABLET PO SCH (08:25)
[2020-08-19] MEDS: PRAMIPEXOLE 0.25 MG TABLET PO SCH ×2 (08:25→21:03)
[2020-08-19] MEDS: CYPROHEPTADINE 4 MG TABLET PO SCH ×2 (08:25→21:03)
[2020-08-19] MEDS: GABAPENTIN 300 MG CAPSULE PO SCH ×2 (08:25→21:03)
[2020-08-19] MEDS: VANCOMYCIN INJ 1,250 MG in SODIUM CHLORIDE 0.9% 250 ML IV SCH (08:26)
[2020-08-19] MEDS: SERTRALINE 25 MG TABLET PO SCH (08:26)
[2020-08-19] MEDS: PANTOPRAZOLE 40 MG TABLET PO SCH (08:26)
[2020-08-19 08:27] LABS: Band Neutrophils 1 % (0-10); Lymphocytes 8 % (20-55); Platelet Estimate Adequate; Segmented Neutrophils 87 % (50-85); Total Cells Counted 100
[2020-08-19 08:28] LABS: Hypochromasia 1+; Microcytosis Slight
[2020-08-19] MEDS: methylPREDNISolone SOD SUC 40 MG/1 ML VIAL IV SCH ×2 (09:37→21:04)
[2020-08-19] MEDS: MICAFUNGIN 100 MG in SODIUM CHLORIDE 0.9% 100 ML IV SCH (10:29)
[2020-08-19] MEDS: ENOXAPARIN 40 MG/0.4 ML SYRINGE SUBCUT SCH (21:03)
[2020-08-19] MEDS: INSULIN GLARGINE 100 UNIT/ML SUBCUT SCH (21:05)
[2020-08-20] MEDS: ALBUTEROL/IPRATROPIUM 3 ML NEB RESP TX SCH ×7 (00:14→23:43)
[2020-08-20] MEDS: SODIUM CHLORIDE 0.9% 1,000 ML IV SCH ×2 (05:23→17:20)
[2020-08-20 06:53] LABS: Basophils # 0.1 10*3/uL (0.0-0.2); Basophils % 0.5 % (0.0-0.8); Eosinophils % 0.2 % (0.00-10.9); Hemoglobin 11.1 GM/DL (14.0-18.0); Immature Granulocytes Absolute 0.76 #; Lymphocytes # 1.7 10*3/uL (1.4-4.0); Lymphocytes % 10.9 % (21.2-54.2); Mean Corpuscular HGB Conc 32.6 GM/DL (32-36); Mean Corpuscular Volume 97.1 FL (87-102); Mean Platelet Volume 9.4 FL (9.6-12.0); Monocytes % 5.8 % (1.7-12.7); Neutrophils % 77.6 % (38.7-73.9); Platelet Count 273 T/CUMM (130-400); Red Cell Distribution Width 13.2 % (9.3-17.3); White Blood Count 15.3 T/CUMM (4-12)
[2020-08-20 07:16] LABS: Albumin 2.2 G/DL (3.4-5.0); Bilirubin,Total 0.4 MG/DL (0.2-1.0); Calcium 8.7 MG/DL (8.5-10.1); Osmolality,Calculated 273.2 MOS/KG (273-304); Total Protein 6.4 G/DL (6.4-8.3)
[2020-08-20 07:23] LABS: Hypochromasia 1+; Lymphocytes 14 % (20-55); Microcytosis 1+; Platelet Estimate Adequate; Segmented Neutrophils 84 % (50-85); Total Cells Counted 100
[2020-08-20] MEDS: INSULIN LISPRO 100 UNIT/ML SUBCUT SCH ×4 (08:00→21:11)
[2020-08-20] MEDS: MULTIVITAMIN (CENTRUM) TABLET PO SCH (08:35)
[2020-08-20] MEDS: CYPROHEPTADINE 4 MG TABLET PO SCH ×2 (08:35→21:17)
[2020-08-20] MEDS: PRAMIPEXOLE 0.25 MG TABLET PO SCH ×2 (08:35→21:12)
[2020-08-20] MEDS: GABAPENTIN 300 MG CAPSULE PO SCH ×2 (08:35→21:11)
[2020-08-20] MEDS: PANTOPRAZOLE 40 MG TABLET PO SCH (08:35)
[2020-08-20] MEDS: SERTRALINE 25 MG TABLET PO SCH (08:35)
[2020-08-20] MEDS: methylPREDNISolone SOD SUC 40 MG/1 ML VIAL IV SCH ×2 (08:35→21:12)
[2020-08-20] MEDS: MICAFUNGIN 100 MG in SODIUM CHLORIDE 0.9% 100 ML IV SCH (10:25)
[2020-08-20 18:21] VITALS: BP 132/81
[2020-08-20] MEDS: ENOXAPARIN 40 MG/0.4 ML SYRINGE SUBCUT SCH (21:11)
[2020-08-20] MEDS: INSULIN GLARGINE 100 UNIT/ML SUBCUT SCH (21:11)
[2020-08-21] MEDS: ALBUTEROL/IPRATROPIUM 3 ML NEB RESP TX SCH ×4 (02:45→15:48)
[2020-08-21] MEDS: INSULIN LISPRO 100 UNIT/ML SUBCUT SCH ×2 (08:06→13:25)
[2020-08-21] MEDS: PRAMIPEXOLE 0.25 MG TABLET PO SCH (09:01)
[2020-08-21] MEDS: CYPROHEPTADINE 4 MG TABLET PO SCH (09:01)
[2020-08-21] MEDS: PANTOPRAZOLE 40 MG TABLET PO SCH (09:01)
[2020-08-21] MEDS: SERTRALINE 25 MG TABLET PO SCH (09:01)
[2020-08-21] MEDS: MULTIVITAMIN (CENTRUM) TABLET PO SCH (09:01)
[2020-08-21] MEDS: GABAPENTIN 300 MG CAPSULE PO SCH (09:01)
[2020-08-21] MEDS: methylPREDNISolone SOD SUC 40 MG/1 ML VIAL IV SCH (09:12)
[2020-08-21] MEDS: MICAFUNGIN 100 MG in SODIUM CHLORIDE 0.9% 100 ML IV SCH (10:09)
== END 2020-08-21 16:25 | DRG 329 ==
LOC: N.ED 12:28 → N.EDINP 15:38 → SUATTDRO 15:38 → N.EDINP 16:34 → N.5E 16:44 → N.ICU 08-04 13:25 → N.5E 08-05 10:16 → N.ICU 08-06 22:30 → N.5E 08-07 11:38 → N.ICU 08-11 21:04
PROVIDERS: ADMIT Family Medicine; ATTEND Family Medicine
PROC: BRONCHB (2020-08-18 07:50)